=== PATIENT | male | born 1940 | race Caucasian/White ===

== ENCOUNTER 2018-03-18 17:30 | Inpatient (IN) | payer MEDICARE, OTHER ==
[~2018-03-18] VITALS: Ht 170.2 cm; Wt 67.6 kg
[~2018-03-18 17:30] MED LIST: DICYCLOMINE HCL10 MG PO; FISH OIL 1,0001 EAC8 PO; HUMALOG100 UNIT/1; HUMALOG100 UNIT/1 SUBQ; LACTULOSE20 GM/30 M PO; LOSARTAN POTAS100 MG PO; OMEPRAZOLE40 MG PO; PROPRANOLOL 1010 M1 PO; PROTONIX 20 MG20 MG PO; VITAMIN D31000 UNI2 PO; XIFAXAN550 M1 PO; XIFAXAN550 MG PO
[2018-03-18 17:34] VITALS: BP 148/61
[2018-03-18 18:02] LABS: HEMATOCRIT 31.7 % (42.0-52.0); HEMOGLOBIN 11.2 gm/dL (14.0-18.0); MCH 35.6 pg (26.0-34.0); MCHC 35.4 g/dL (28.0-37.0); MCV 100.6 fL (80.0-100.0); MPV 8.2 fl. (7.2-11.1); NUCLEATED RBCS 0 /100WBC; PLATELET COUNT* 70 thou/uL (150-400); RBC 3.15 mil/uL (4.50-6.00); RDW-CV 14.8 % (10.5-14.5); WBC 7.1 thou/uL (4.0-11.0)
[2018-03-18 18:25] LABS: HCO3 20.3 mmol/L (22.0-26.0); PCO2 34.5 mmHg (35.0-45.0); pH 7.388 (7.340-7.450)
[2018-03-18 18:26] LABS: PO2 < 23.5 mmHg (75.0-100.0)
[2018-03-18 18:34] LABS: ANION GAP 9 mmol/L (7-16); BUN 27 mg/dL (7-18); CALCIUM 8.7 mg/dL (8.5-10.1); CHLORIDE 106 mmol/L (98-107); CO2 22 mmol/L (21-32); CREATININE 1.6 mg/dL (0.6-1.3); GLUCOSE 136 mg/dL (70-99); POTASSIUM 4.6 mmol/L (3.5-5.1); SODIUM 137 mmol/L (136-145)
[2018-03-18 18:42] LABS: ALBUMIN 3.1 g/dL (3.4-5.0); ALKALINE PHOSPHATASE 88 U/L (46-116); AMMONIA 31 umol/L (11-32); MAGNESIUM 1.4 mg/dL (1.8-2.4); NT-PRO BRAIN NAT PEPTIDE 721 pg/mL (<300); SGOT 42 U/L (15-37); SGPT 25 U/L (30-65); TOTAL PROTEIN 6.8 g/dL (6.4-8.2); TROPONIN-I LEVEL <0.06 ng/mL (<0.06)
[2018-03-18 18:44] LABS: ABSOLUTE EOSINOPHILS 0.1 thou/uL (0.0-0.7); ABSOLUTE LYMPHOCYTES 0.5 thou/uL (0.8-5.3); ABSOLUTE MONOCYTES 0.4 thou/uL (0.0-1.2); ABSOLUTE NEUTROPHILS 6.1 thou/uL (1.6-8.1)
[2018-03-18 18:45] LABS: OVALOCYTES Occasional; PLATELET ESTIMATE DECREASED
[2018-03-18 18:46] LABS: ANISOCYTOSIS Occasional
[2018-03-18 18:55] LABS: URINE BILIRUBIN NEGATIVE (Negative); URINE BLOOD 1+ (Negative); URINE CLARITY CLEAR; URINE COLOR YELLOW; URINE GLUCOSE-RANDOM TRACE (Negative); URINE KETONES NEGATIVE (Negative); URINE LEUKOCYTES-REFLEX NEGATIVE (Negative); URINE NITRITE-REFLEX NEGATIVE (Negative); URINE PROTEIN 2+ (Negative); URINE SPECIFIC GRAVITY >= 1.030 (1.005-1.030)
[2018-03-18 19:43] LABS: INFLUENZA A ANTIGEN None Detected (None Detect); INFLUENZA B ANTIGEN None Detected (None Detect)
[2018-03-18 19:47] LABS: AMORPHOUS URATES Moderate /LPF (None Seen); MUCUS None Seen strn/LPF (None Seen); SQUAMOUS 0-3 Few /LPF (0-3); URINE WBC-REFLEX 0-5 Rare /HPF (0-5)
[2018-03-18 19:48] LABS: BACTERIA-REFLEX 1-9 Few /HPF (None Seen); CASTS None Seen /LPF (None Seen); URINE RBC 0-2 Rare /HPF (0-2)
[2018-03-18 20:25] VITALS: BP 148/56
[2018-03-18 22:00] VITALS: BP 138/56
[2018-03-19] VITALS (14 sets, daily range): BP systolic 88–173; BP diastolic 30–88
--- NOTE | 2018-03-19 05:14 | NUR ---
PT ARRIVED ON UNIT AT 2014 PT ASSISTED TO BED FROM STRETCHER PT LETHARGIC AND NON RESPONSIVE PTS VSS .PT RUNNING NSR ON THE MONITOR. PT BECAME HYPOTENSIVE AT 0000 NOTIFIED [address] YUEN CALLED BACK AND NOTIFIED ME THAT HE WOULD BE ORDERING A CENTRAL LINE AND LEVO. NOTIFIED OPTIMIZATION CONSULTANT WHO CONTACTED RETORT PRE COOKER TO COME PLACE CENTRAL LINE. WIFED CALLED WITH UPDATE AND GAVE VERBAL CONSENT TO TWO NURSES FOR LINE PLACEMENT PT TOLERATED WELL LEVO GTT STRATED. STOPPED GTT AT 0500 FOR BP 161/82. PT BECOMING MORE ALERT ANSWERING QUESTIONS CONTINUES WITH BILATERAL SOFT WRIST RESTRAINTS TURNED AND POSITIONED Q2H. WILL CONTINUE PLAN OF CARE.
[2018-03-19 08:20] LABS: BE -9.8 mmol/L (-2 to +3); PCO2 24.5 mmHg (35.0-45.0); pH 7.374 (7.340-7.450)
[2018-03-19 08:22] LABS: PO2 133.5 mmHg (75.0-100.0)
--- NOTE | 2018-03-19 10:05 | EKG ---
[place] [address] ELECTROCARDIOGRAM REPORT Name: LUIS A CARRERA Lois Room: [address] ADM IN M.R.#: [id number] Admission: 03/18/18 Attend Phys: Jay Wood MD Discharge: Date of : 40 Report #: [id number] THIS REPORT FOR: //name// [facility] ED Test Date: 2018-03-18 Test Time: 17:35:55 Pat Name: LUIS A CARRERA Department: Room: [facility] Gender: M Social Media Senior Associate: Johanne LOZANO : 1940 Requested By: Nicole Steele Order Number: [id number] MD: Thong James Measurements Intervals [place] Rate: 92 P: 25 NE: 191 QRS: -10 QRSD: 95 T: 63 QT: 347 QTc: 430 Interpretive Statements Sinus rhythm Minimal ST depression, anterolateral leads Compared to ECG 02/23/2016 07:38:33 artifact no longer seen Electronically Signed On 03-19-2018 10:04:56 CDT by Thong James [email or web address] <ELECTRONICALLY SIGNED> By: Thong James MD, FACC 03/19/18 1004 1735 1735 Thong James MD, FAC /EPI
--- NOTE | 2018-03-19 11:10 | NUR ---
SPOKE WITH PT.AND AT BEDSIDE. PT.CONTRIBUTED TO A FEW QUESTIONS OF THE CONVERSATION BUT MAINLY ANSWERED THE QUESTIONS. IS WITH PT. ALL THE TIME AT HOME OR TAKES HIM WITH HER. SHE SAID HE IS OK FOR SHORT PERIODS OF TIME ALONE BUT NOT ALL DAY. THEIR DAUGHTER LIVES CLOSE AND IS SUPPORTIVE. SHE IS A NURSE. PT.USES A WALKER TO AMBULATE. HE CAN BATHE HIMSELF. HE NEEDS ASSISTANCE DRESSING. SOMETIMES HE TENDS TO PUT HIS CLOTHES ON BACKWARDS. APPETITE IS NORMALLY GOOD. SHE SAID PT.DOES NOT DRINK BUT HAS CIRRHOSIS OF THE LIVER. CM WILL FOLLOW FOR DISCHARGE PLANNING.
[2018-03-19 14:26] LABS: CALCIUM 8.2 mg/dL (8.5-10.1); CREATININE 1.8 mg/dL (0.6-1.3); POTASSIUM 4.3 mmol/L (3.5-5.1)
--- NOTE | 2018-03-19 18:12 | NUR ---
ASSUME CARE OF PT. PT IN MRI. MEDS GIVEN FOR ANXIETY. PT ATTEMPTING TO PULL AT LINES BUT EASILY REDIRECTED
[2018-03-19 18:37] LABS: CALCIUM 8.4 mg/dL (8.5-10.1); CREATININE 1.9 mg/dL (0.6-1.3); POTASSIUM 4.6 mmol/L (3.5-5.1)
[2018-03-20] VITALS (17 sets, daily range): BP systolic 108–185; BP diastolic 44–102
--- NOTE | 2018-03-20 02:52 | NUR ---
ASSUMED CARE OF PATIENT AT 1900. BP SLIGHTLY ELEVATED, BUT PATIENT HIGHLY AGITATED, RESTLESS, CONFUSED, PULLING AT TLELE LEADS, O2 SENSOR. SITTER AT BEDSIDE. INCONTINENT OF URINE SEVERAL TIMES, ONE BOWEL MOVEMENT. MG REPLACED PER PROTOCOL. LABS TO BE DRAWN. FAMILY UPDATED TO POC. NOT WORKING TOWARDS POC GOALS.
[2018-03-20 06:25] LABS: ALBUMIN 3.2 g/dL (3.4-5.0); CALCIUM 8.5 mg/dL (8.5-10.1); CREATININE 1.8 mg/dL (0.6-1.3); MAGNESIUM 4.2 mg/dL (1.8-2.4); POTASSIUM 4.7 mmol/L (3.5-5.1)
--- NOTE | 2018-03-20 11:00 | NUR ---
INTERDISCIPLINARY ROUNDS: PT.HAS 1:1 SITTER. WHEN HE IS MORE ALERT, HE IS MORE IMPULSIVE. 2 BLOOD CXS HAVE COME BACK POSITIVE. NEPHROLOGY CONSULTED.
[2018-03-20 11:51] LABS: URINE BILIRUBIN NEGATIVE (Negative); URINE BLOOD 2+ (Negative); URINE CLARITY CLEAR; URINE COLOR YELLOW; URINE GLUCOSE-RANDOM NEGATIVE (Negative); URINE KETONES NEGATIVE (Negative); URINE LEUKOCYTES-REFLEX NEGATIVE (Negative); URINE NITRITE-REFLEX NEGATIVE (Negative); URINE PROTEIN 2+ (Negative); URINE SPECIFIC GRAVITY >= 1.030 (1.005-1.030); URINE UROBILINOGEN 0.2 E.U./dl (0.2-1.0)
--- NOTE | 2018-03-20 11:58 | CON ---
[address] [address] CONSULTATION Name: LUIS A CARRERA Lois Room: [address] IN M.R.#: [id number] Admission: 03/18/18 Attend Phys: Jay Wood MD Discharge: Date of : 40 Report #: [id number] THIS REPORT FOR: //name// CC: Thong Wood REQUESTING PHYSICIAN: Dr. Jay Wood. REASON FOR CONSULTATION: Alterations in mental status. DISCUSSION: This is a 77-year-old man who has a history of known cirrhosis, not thought to be related to alcohol usage. He began to have alterations in his mental status. He had a fairly sudden change. Noted he was extremely weak. Initially he had said he was going to go outside and walk. His had him sit down. He had alterations in his level of consciousness. Because of his history of diabetes, she did check his blood sugar. He became just minimally responsive. Did call 911 and was brought into the Emergency Department. He has no prior history of known pulmonary disease. He does have a history of cirrhosis, has had issues with portal hypertension and hepatic encephalopathy in the past. He was here several years ago with some similar issues. His is not aware of any fevers at home. She did not note him having issues with coughing. No nausea, vomiting or diarrhea at home that she is aware of. Not aware of any skin ulcerations. When he was seen in the Emergency Department, he was noted to be febrile. Definitely was confused. There was some initial concern he may have had some seizure-like activity. He had blood cultures done at the time of admission. He did spike a fever during the night up to 102.9. His blood cultures at this time (06/30) are positive for Gram-positive cocci. Identification is pending. PAST MEDICAL HISTORY: He has a history of cirrhosis, portal hypertension is noted. He has had EGDs in the past, which revealed a small hiatal hernia as well as esophageal varices. He did have an erosive reactive gastropathy. Prior history of peptic ulcer disease. He had prior tonsillectomy, cholecystectomy, hernia repair, cataracts, knee surgery. He is known in the past to have thrombocytopenia thought to be related to his cirrhosis (which was originally diagnosed in 2005). SOCIAL HISTORY: Nonsmoker. Does not drink alcohol nor has he in the past per family. 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 He is . FAMILY HISTORY: Unable to obtain from the [place] [address] CONSULTATION Name: LUIS A CARRERA Room: [address] IN M.R.#: [id number] Admission: 03/18/18 Attend Phys: Jay Wood MD Discharge: Date of : 40 Report #: [id number] REVIEW OF SYSTEMS: Unable to obtain from the patient. I was able to obtain some information from his and his daughter. PHYSICAL EXAMINATION: GENERAL: Seen in the ICU. Currently, he is off oxygen. He is awake. He is attempting to answer questions. Reliability of some of the answers is difficult to understand as he is quite difficult to understand. His mucous membranes are quite dry and it is difficult for him to talk. At times, he is slow to respond. does believe he has been generally fairly appropriate here recently. HEENT: Head is normocephalic. Sclerae nonicteric. Mucous membranes are quite dry. No thrush is seen. NECK: Negative for adenopathy. No JVD is noted. HEART: Regular rate. He is in the 70s. LUNGS: Sounds are fairly clear. Occasional rhonchus but does clear with a cough. Excursion appears equal. ABDOMEN: Soft. Does not appear tender to palpation. SKIN: Warm and dry. He has some muscle wasting noted. No definite edema is noted. No clubbing. Pulses are present, but diminished peripherally. SKIN: Warm and dry. LABORATORY AND X-RAY FINDINGS: I did have ultrasound of his abdomen done and does not appear to have any significant ascites noted. On chest x-ray, central line is in place. It is in the SVC. Has some mild cardiomegaly or some prominence of interstitial changes consistent with some mild pulmonary edema. A CT scan of his head done last night was negative for any acute findings. Does have some age-related atrophy. Arterial blood gases done yesterday evening, he had a pH of 7.39, pCO2 of 35, bicarbonate of 20. A pO2 reportedly was only 24. Followup gases done this morning on 2 liters, he had a pH of 7.37, a pCO2 of 25, pO2 of 134, bicarbonate 14, saturation 97%. It was on 2 liters and is now currently on 1 liter. His BUN is 30, creatinine of 1.8. Serum bicarbonate 18, magnesium 1.1. Total bilirubin is 3.1, albumin 2.4, alkaline phosphatase 59, ALT 26 with AST of 47. Lactic acid 2.2 on admission, now down to 1.8. INR is 1.2. White blood cell count 12,500, hemoglobin 9.3, hematocrit 26, MCV 102, platelets are 55,000. He does have a left shift. Influenza screen was negative. As noted, 2/2 blood cultures are positive for gram-positive cocci. IMPRESSION: 1. Possible early sepsis. Two out of two blood cultures are positive for gram-positive cocci. ID pending. Exact source not clear. However, he is immunocompromised given his cirrhosis as well as his diabetes mellitus. 2. Altered mental status, improved this morning. Most likely related to his acute infection as well as his underlying hepatic encephalopathy. 3. [place] [address] CONSULTATION Name: LUIS A CARRERA Room: [address] IN [facility].#: [id number] Admission: 03/18/18 Attend Phys: Jay Wood MD Discharge: Date of : 40 Report #: [id number] 4. Anemia. 5. Thrombocytopenia, most likely related to his liver disease. 6. Chronic kidney disease. RECOMMENDATIONS: 1. Continue vancomycin broad spectrum antibiotics pending ID. 2. Treat his encephalopathy. 3. Agree with Speech seeing him to evaluate. If he does not appear to be an aspiration risk, could resume p.o. intake. 4. Also, start IS. Given his acute illness, debility, he is at risk for development of pneumonia. <ELECTRONICALLY SIGNED> By: Katerine Casanova MD 03/20/18 1158 1148 1450Katerine Casanova MD /eliezer
[2018-03-20 12:06] LABS: CRYSTALS None Seen /LPF (None Seen)
[2018-03-20 12:07] LABS: BACTERIA-REFLEX None Seen /HPF (None Seen); URINE WBC-REFLEX 6-15 Few /HPF (0-5)
[2018-03-20 12:08] LABS: URINE RBC 3-10 Few /HPF (0-2)
[2018-03-20 12:09] LABS: HYALINE CASTS 0-3 Few /LPF (None Seen)
[2018-03-20 12:10] LABS: AMORPHOUS URATES Moderate /LPF (None Seen); MUCUS 0-3 Light strn/LPF (None Seen)
[2018-03-20 12:59] LABS: SQUAMOUS 0-3 Few /LPF (0-3)
[2018-03-20 13:09] LABS: CASTS None Seen /LPF (None Seen)
--- NOTE | 2018-03-20 18:08 | NUR ---
PT CENTRAL LINE DRESSING COMING OFF AGAIN, LEAKING AND PAINFUL WHEN FLUSHED, WILL NOT DRAW BLOOD BACK, APPEARS TO HAVE COME OUT A BIT, CHEST XRAY ORDERED PER PROTOCOL, INFUSIONS DC'D UNTIL RESULTS COME BACK
--- NOTE | 2018-03-20 18:10 | NUR ---
PT HAS BEEN DROWSY THROUGHOUT DAY, MOST OF THE MORNING AND AFTERNOON PT COOPERATIVE, RESTLESS AT TIMES, BUT FOLLOWS SIMPLE COMMANDS. THIS EVENING PT IS INCREASINGLY AGITATED, KICKING AND HITTING, TRYING TO GET OUT OF BED. PT HAS DAVIS INSERTED EARLIER THIS SHIFT, DRAINING WELL, PT HAD THREE BOWEL MOVEMENTS.
[2018-03-20 18:20] LABS: CALCIUM 8.6 mg/dL (8.5-10.1); POTASSIUM 4.6 mmol/L (3.5-5.1)
[2018-03-20 18:54] LABS: BE -8.1 mmol/L (-2 to +3); HCO3 15.3 mmol/L (22.0-26.0); PCO2 VENOUS 26.8 mmHg (41.0-51.0); PO2 VENOUS 52.3 mmHg (35.0-45.0)
[2018-03-21 05:05] LABS: ABSOLUTE EOSINOPHILS 0.2 thou/uL (0.0-0.7); ABSOLUTE MONOCYTES 0.6 thou/uL (0.0-1.2); ABSOLUTE NEUTROPHILS 4.7 thou/uL (1.6-8.1); BASOPHILS 0.5 %; EOSINOPHILS 2.5 %; HEMATOCRIT 26.3 % (42.0-52.0); HEMOGLOBIN 8.9 gm/dL (14.0-18.0); LYMPHOCYTES 15.9 %; MCH 35.2 pg (26.0-34.0); MCHC 33.8 g/dL (28.0-37.0); MCV 104.2 fL (80.0-100.0); MONOCYTES 9.9 %; NUCLEATED RBCS 0 /100WBC; PLATELET COUNT* 55 thou/uL (150-400); POLYS 71.2 %; RBC 2.53 mil/uL (4.50-6.00); RDW-CV 15.1 % (10.5-14.5); WBC 6.5 thou/uL (4.0-11.0)
--- NOTE | 2018-03-21 05:14 | NUR ---
UPON ARRIVAL PT HAS NO IV ACCESS D/T PULLING OUT CENTRAL LINE AND PERIPHERAL IVS OUT. PT HAS CONSTANTLY PULLED ON DAVIS, ATTEMPTED TO CLIMB OUT OF BED. PT WAS UNCOOPERATIVE FIRST PART OF SHIFT. PT STATED HE WA HURTING. DR ARSHAD NOTIFIED OF PTS AGITATION AND C/O OF PAIN AT 2214 AND NEW ORDER RECIEVED. IV RESTARTED AT BEGINNING OF SHIFT AND PT DCD IT. 2 NEW IVS PLACED IN L FOREARM. TRAFFIC ANALYSIS TECHNICIAN INTACT WITH ALARMS SET. DAVIS INTACT AND PATENT DRAINING DARK RITA URINE TO BEDSIDE BAG. SITTER REMAINS AT BEDSIDE. VSS AND NO ACUTE CHANGES DURIGN SHIFT. WILL CONTINUE TO MONITOR
[2018-03-21 05:22] LABS: INR 1.3; PROTIME 13.6 Seconds (9.20-11.50)
[2018-03-21 05:31] LABS: ALBUMIN 3.5 g/dL (3.4-5.0); CALCIUM 8.3 mg/dL (8.5-10.1); POTASSIUM 4.5 mmol/L (3.5-5.1); TOTAL BILIRUBIN 2.4 mg/dL (<0.1-1.0); TOTAL PROTEIN 6.3 g/dL (6.4-8.2)
--- NOTE | 2018-03-21 11:00 | NUR ---
AT BEDSIDE AND HAD COPY OF DPOA AND ADVANCE DIRECTIVE. CM MADE COPY AND PUT ON CHART. GAVE HER COPY BACK. PT.HAD BEEN VERY RESTLESS DURING THE NIGHT. PULLED OUT DAVIS AND IVS. SLEEPING AT THIS TIME.
--- NOTE | 2018-03-21 12:36 | CON ---
[address] [address] CONSULTATION Name: LUIS A CARRERA Room: [address] IN M.R.#: [id number] Admission: 03/18/18 Attend Phys: Jay Wood MD Discharge: Date of : 40 Report #: [id number] THIS REPORT FOR: //name// CC: Thong Wood DATE OF SERVICE: 03/20/2018 ATTENDING PHYSICIAN: Dr. Gallardo. REASON FOR EVALUATION: Gram-positive septicemia. HISTORY OF PRESENT ILLNESS: Chart reviewed, the patient examined. This is a 77-year-old man with cirrhosis, felt to be a cryptogenic who was admitted through the Emergency Room with worsening encephalopathy, seizure-like activity. He does have a history of diabetes mellitus and cirrhosis complicated by esophageal varices. He was sufficiently ill that he was placed in Intensive Care Unit. Chest x-ray was otherwise unrevealing. Lactic acid was elevated at 2.2. Influenza antigen was negative. Urinalysis did show only mild pyuria. Blood cultures collected at the time of admission now are 2/2 positive with Gram-positive cocci. He is really unable to give any details of history. He does have some slurred speech as well. He was empirically started on broad spectrum antimicrobial therapy with ceftriaxone as well as vancomycin as well as Zosyn. ALLERGIES: None known. CURRENT MEDICATIONS: Include Zosyn, aspirin, octreotide, midodrine, lactulose, ceftriaxone and vancomycin. PAST MEDICAL HISTORY: As noted above, diabetes mellitus type 2, hypertension, cryptogenic cirrhosis, esophageal varices, previous tonsillectomy, cholecystectomy, cataracts. SOCIAL HISTORY: Nonsmoker, no ethanol. FAMILY HISTORY: Noncontributory. REVIEW OF SYSTEMS: Limited due to his encephalopathy. PHYSICAL EXAMINATION: GENERAL: He appears chronically ill, undernourished. He is restless. He is in moderate to marked distress. Does have a degree of jaundice. VITAL SIGNS: Temperature 98.7, pulse 82, respirations 21, blood pressure 134/71. SKIN: [place] [address] CONSULTATION Name: LUIS A CARRERA Room: [address] IN [facility]#: [id number] Admission: 03/18/18 Attend Phys: Jay Wood MD Discharge: Date of : 40 Report #: [id number] NECK: He is moving his neck freely. LUNGS: Few scattered coarse breath sounds. HEART: Regular, has a soft systolic murmur. ABDOMEN: Soft. There are no apparent peritoneal signs. GENITOURINARY: Deferred. RECTAL: Deferred. LABORATORY DATA: Urinalysis 6-15 white cells, no bacteria. ABGs, pH 7.388, pCO2 of 34.5, pO2 less than 23.5 on room air. Electrolytes: Sodium 142, potassium 4.7, chloride 111, bicarbonate is 14, BUN and creatinine 39 and 1.8, anion gap of 17, AST of 68, ALT of 32, total bilirubin of 2.0, albumin 3.2, total protein 6.0. MRI of the head, moderately prominent microvascular ischemia, diffuse volume loss, minimal mucosal thickening of the maxillary sinuses. ASSESSMENT: Gram-positive septicemia in a patient with underlying cirrhosis certainly fits the risk for encapsulated organisms, certainly streptococcus would be a consideration. Certainly he should be well covered for staphylococcus as well given the likelihood it may be fairly aggressive etiology such as Staphylococcus aureus. He remains critically ill at this time. We will have to monitor expectantly. He is certainly at risk for clinical deterioration in spite of aggressive efforts to support. <ELECTRONICALLY SIGNED> By: Jesse Saucedo MD 03/21/18 1236 1235 1733Josuzan Saucedo MD /nt
[2018-03-21 15:04] LABS: CALCIUM 8.1 mg/dL (8.5-10.1); POTASSIUM 4.1 mmol/L (3.5-5.1)
[2018-03-21 17:33] LABS: CSF CLARITY CLOTTED; CSF COLOR BLOODY; VOLUME 0.5 ml
[2018-03-21 17:48] LABS: CSF PROTEIN 547.3 mg/dl (15-45)
[2018-03-21 17:52] LABS: CSF GLUCOSE 100 mg/dl (40-70)
[2018-03-21 21:43] LABS: URINE BILIRUBIN NEGATIVE (Negative); URINE BLOOD 3+ (Negative); URINE COLOR YELLOW; URINE GLUCOSE-RANDOM NEGATIVE (Negative); URINE KETONES NEGATIVE (Negative); URINE LEUKOCYTES-REFLEX NEGATIVE (Negative); URINE NITRITE-REFLEX NEGATIVE (Negative); URINE PROTEIN 2+ (Negative); URINE SPECIFIC GRAVITY 1.025 (1.005-1.030); URINE UROBILINOGEN 0.2 E.U./dl (0.2-1.0)
[2018-03-21 21:44] LABS: URINE CLARITY SL HAZY
[2018-03-21 21:49] LABS: BACTERIA-REFLEX None Seen /HPF (None Seen); CASTS None Seen /LPF (None Seen); CRYSTALS None Seen /LPF (None Seen); SQUAMOUS NONE SEEN /LPF (0-3); URINE RBC >20 Many /HPF (0-2); URINE WBC-REFLEX 0-5 Rare /HPF (0-5)
[2018-03-21 22:23] LABS: CALCIUM 8.6 mg/dL (8.5-10.1); CREATININE 2.1 mg/dL (0.6-1.3); POTASSIUM 3.9 mmol/L (3.5-5.1)
[2018-03-22 05:21] LABS: ABSOLUTE EOSINOPHILS 0.3 thou/uL (0.0-0.7); ABSOLUTE LYMPHOCYTES 1.1 thou/uL (0.8-5.3); ABSOLUTE MONOCYTES 0.6 thou/uL (0.0-1.2); BASOPHILS 0.4 %; HEMATOCRIT 25.6 % (42.0-52.0); HEMOGLOBIN 8.9 gm/dL (14.0-18.0); LYMPHOCYTES 22.4 %; MCH 35.5 pg (26.0-34.0); MCHC 34.7 g/dL (28.0-37.0); MCV 102.2 fL (80.0-100.0); MONOCYTES 11.3 %; MPV 8.9 fl. (7.2-11.1); NUCLEATED RBCS 0 /100WBC; PLATELET COUNT* 58 thou/uL (150-400); POLYS 59.9 %; WBC 4.9 thou/uL (4.0-11.0)
[2018-03-22 05:33] LABS: INR 1.3; PROTIME 13.4 Seconds (9.20-11.50)
[2018-03-22 05:45] LABS: ALBUMIN 3.4 g/dL (3.4-5.0); CALCIUM 8.3 mg/dL (8.5-10.1); CREATININE 1.9 mg/dL (0.6-1.3); POTASSIUM 3.8 mmol/L (3.5-5.1); TOTAL BILIRUBIN 2.5 mg/dL (<0.1-1.0)
--- NOTE | 2018-03-22 07:18 | NUR ---
PT AAOX3 THIS AM, RESP REG AND UNLABORED SKIN W/D NO ACUTE DISTRESS NOTED. FECAL MANAGEMENT SYSTEM INTACT DRAINING BROWN SECRETIONS, FOLWY INTACT AND PATENT DRAINING DARK YELLOW URINE. TROUSSEAU CONSULTANT INTact wWITH ALARMS SET. SITTER REMAINS AT BEDSIDE. VSS AND NO ACUTE CHANGES DURING SHIFT WILL CONTINUE TO MONITOR
--- NOTE | 2018-03-22 14:39 | 2DMMODE ---
[place] [address] 2 D/M-MODE ECHOCARDIOGRAM Name: JOSE ANGELLUIS A DONOHUE Lois Room: [address] IN [facility]#: [id number] Admission: 03/18/18 Attend Phys: Jay Wood, Discharge: Date of : 40 Date of Service: 03/22/18 1439 Report #: [id number] THIS REPORT FOR: //name// APPROVED REPORT Study performed: 03/22/2018 10:45:39 EXAM: Comprehensive 2D, Doppler, and color-flow Echocardiogram Patient Location: In-Patient Room #: 006 Status: routine BSA: 1.78 HR: 65 bpm BP: 152/70 mmHg Rhythm: NSR Other Information Study Quality: GoodTechnically Difficult Technically limited study due to uncooperative patient, patient would not hold still. Indications hepatic encephalopathy, cirrhosis 2D Dimensions IVSd: 12.07 (7-11mm) LVOT Diam: 20.64 (18-24mm) LVDd: 48.57 mm PWd: 8.37 (7-11mm) Ascending Ao: 37.29 (22-36mm) LVDs: 26.48 (25-40mm) Aortic Root: 34.98 mm Aortic Valve AoV Peak Klever.: 1.52 m/s AO Peak Gr.: 9.29 mmHg LVOT Max P.42 mmHg AO Mean Gr.: 4.88 mmHg LVOT Mean P.00 mmHg LVOT Max V: 1.36 m/s AO V2 VTI: 36.74 cm LVOT Mean V: 0.77 m/s ELISABETH (VTI): 2.82 cm2 LVOT V1 VTI: 30.99 cm Mitral Valve E/A Ratio: 1.10 MV Decel. Time: 155.40 ms MV E Max Klever.: 1.26 m/s MV PHT: 45.06 ms MVA (PHT): 4.88 [place] [address] 2 D/M-MODE ECHOCARDIOGRAM Name: LUIS A CARRERA Room: [address] IN M.R.#: [id number] Admission: 03/18/18 Attend Phys: Jay Wood, Discharge: Date of : 40 Date of Service: 03/22/18 1439 Report #: [id number] TDI E/Lateral E': 10.50 E/Medial E': 11.45 Medial E' Klever.: 0.11 m/s Lateral E' Klever.: 0.12 m/s Pulmonary Valve PV Peak Klever.: 0.89 m/s PV Peak Gr.: 3.16 mmHg Tricuspid Valve RAP Estimate: 5.00 mmHg TR Peak Gr.: 41.51 mmHg RVSP: 46.00 mmHg PA Pressure: 46.00 mmHg Left Ventricle The left ventricle is normal size. There is normal LV segmental wall motion. Mild concentric left ventricular hypertrophy. Left ventricular systolic function is normal. The left ventricular ejection fraction is within the normal range. LVEF is 60%. The left ventricular diastolic function is normal. Right Ventricle The right ventricle is normal size. The right ventricular systolic function is normal. Atria Left atrium is moderately dilated. The right atrium size is normal. Aortic Valve aortic valve sclerosis. The aortic valve is not well visualized. No aortic regurgitation is present. There is no aortic valvular stenosis. Mitral Valve There is mitral annular calcification. Mild mitral regurgitation. No evidence of mitral valve stenosis. Tricuspid Valve The tricuspid valve is normal in structure. Mild tricuspid regurgitation. Moderate pulmonary hypertension. Pulmonic Valve The pulmonary valve is normal in structure. Mild [place] [address] 2 D/M-MODE ECHOCARDIOGRAM Name: LUIS A CARRERA Room: [address] IN ..#: [id number] Admission: 03/18/18 Attend Phys: Jay Wood, Discharge: Date of : 40 Date of Service: 03/22/18 1439 Report #: [id number] Great Vessels The aortic root is normal in size. IVC is normal in size and collapses >50% with inspiration. Pericardium There is no pericardial effusion. <Conclusion> LVEF is 60%. Mild concentric left ventricular hypertrophy. There is normal LV segmental wall motion. Left atrium is moderately dilated aortic valve sclerosis. There is no aortic valvular stenosis. No aortic regurgitation is present. <ELECTRONICALLY SIGNED> By: Ceferino Lyons MD, FACC 03/22/18 1439 1439 143 Ceferino Lyons MD, FACC /INF
--- NOTE | 2018-03-22 17:43 | NUR ---
PT CARE ASSUMED AFTER REPORT. ASSESSMENT COMPLETE. SR ON MONITOR. PT CONFUSED, VERY IMPULSIVE AND RESTLESS. PULLING AT LINES AND TUBES. SITTER AT BEDSIDE. NEW FECAL SYSTEM PLACED AFTER PREVIOUS ONE WOULD NOT ACCEPT MEDICATION. NEW SYSTEM WORKS WELL. DAVIS TO DD. PT DIET ADVANCED. TOLERATING WELL. NO S/S OF ASPIRATION. FALL PRECAUTIONS IN PLACE. FAMILY AT BEDSIDE. DENIES PAIN. PROGRESSING TOWARDS SOME GOALS.
[2018-03-22 19:20] VITALS: BP 168/78
[2018-03-23] VITALS: BP 145/54
[2018-03-23 02:32] LABS: HEMATOCRIT 24.5 % (42.0-52.0); HEMOGLOBIN 8.4 gm/dL (14.0-18.0); MCH 35.2 pg (26.0-34.0); MCHC 34.3 g/dL (28.0-37.0); MCV 102.6 fL (80.0-100.0); MPV 8.9 fl. (7.2-11.1); NUCLEATED RBCS 0 /100WBC; PLATELET COUNT* 58 thou/uL (150-400); RBC 2.39 mil/uL (4.50-6.00); RDW-CV 15.1 % (10.5-14.5); WBC 4.7 thou/uL (4.0-11.0)
[2018-03-23 02:48] LABS: ALBUMIN 3.2 g/dL (3.4-5.0); CALCIUM 8.1 mg/dL (8.5-10.1); CREATININE 1.8 mg/dL (0.6-1.3); DIRECT BILIRUBIN 0.8 mg/dL (<0.1-0.3); POTASSIUM 3.6 mmol/L (3.5-5.1); TOTAL BILIRUBIN 2.6 mg/dL (<0.1-1.0); TOTAL PROTEIN 5.7 g/dL (6.4-8.2)
[2018-03-23 02:54] LABS: ABSOLUTE EOSINOPHILS 0.1 thou/uL (0.0-0.7); ABSOLUTE LYMPHOCYTES 1.1 thou/uL (0.8-5.3); ABSOLUTE MONOCYTES 0.4 thou/uL (0.0-1.2); ABSOLUTE NEUTROPHILS 3.1 thou/uL (1.6-8.1); PLATELET ESTIMATE DECREASED
[2018-03-23 02:55] LABS: ANISOCYTOSIS 1+; OVALOCYTES 1+; POLYCHROMASIA 1+
[2018-03-23 04:00] VITALS: BP 154/47
--- NOTE | 2018-03-23 06:14 | NUR ---
PT WAS AAOX3 AT BEGINNING OF SHIFT. RESP REG AND UNLABORED SKIN W/D NO ACUTE DISTRESS NOTED. SECTIONAL BELT MOLD ASSEMBLER INTACT WITH ALARMS SET. SHIFT WENT ON PT BECAME PROGRESSIVELY CONFUSED.VSS AND N0 ACUTE CHAGES DURIGN SHIFT. FOELY INTACT AND PATENT DRIANING DARK RITA URINE TO BEDSIDE BAG. FECAL MANAGEMENT SYSTEM INTACT WITH LIQUID BROWN STOOL NOTED. SITTER REMAINS AT BEDSIDE. WILL CONITNUE TO MONITOR
--- NOTE | 2018-03-23 09:19 | CON ---
[address] [address] CONSULTATION Name: JOSE ANGELJAYDELUIS A E Room: [address] IN M.R.#: [id number] Admission: 03/18/18 Attend Phys: Jay Wood MD Discharge: Date of : 40 Report #: [id number] THIS REPORT FOR: //name// CC: Thong Wood DATE OF SERVICE: 03/21/2018 CONSULTING PHYSICIAN: Dr. Gallardo. REASON FOR NEPHROLOGY CONSULTATION: Metabolic acidosis and chronic kidney disease. REASON FOR ADMISSION: Altered mental status and seizure-like activity. HISTORY OF PRESENT ILLNESS: This is a 77-year-old male with past medical history of diabetes type 2, has history of diabetic retinopathy, chronic kidney disease, stage 3 with baseline creatinine around 1.6-1.8, history of cirrhosis of cryptogenic origin and history of esophageal varices who was brought in by his because of seizure-like activity and altered mental status and some expressive aphasia. The patient has been confused. He was found to have gram-positive cocci in his blood and he is getting treatment for that in form of vancomycin and he is also receiving Zosyn. Nephrology was consulted because the serum bicarbonate level had dropped to 14 yesterday. He has also been getting lactulose, which he did not get today because he has been having some more diarrhea and he is being ruled out for C. diff. His creatinine has been ranging 1.8-2 here in this hospitalization. He has not been taking anything p.o. He was started on a bicarbonate drip yesterday with which his bicarbonate is improved to 20. He does not take any NSAIDs at home, no history of any kidney stones, no urinary complaints that the knows of. He has a Marcum catheter in place and he is nonoliguric, 50 mL of urine output in the last 24 hours. He does not follow with Nephrology at the moment, but did follow up with us and once in 2008. He was also started on octreotide, midodrine and albumin when he came in. His blood pressures now have been lingering high whereas they were low when he came in. He also received morphine this morning. He has been out sleeping. He has also been very agitated when he does wake up. REVIEW OF SYSTEMS: I cannot obtain from the patient right now given his current mental status. ALLERGIES: No known drug allergies. HOME MEDICATIONS: Include rifaximin, cholecalciferol, omega 3 fish oil, dicyclomine, propranolol, lactulose, omeprazole, Lispro insulin. PAST MEDICAL AND SURGICAL HISTORY: Includes esophageal varices, [place] [address] CONSULTATION Name: JOSE ANGELJAYDELUIS A Room: [address] IN M.R.#: [id number] Admission: 03/18/18 Attend Phys: Jay Wood MD Discharge: Date of : 40 Report #: [id number], carpal tunnel surgery, tonsillectomy, gallbladder surgical removal, hiatal hernia surgery, cataract removal, hypertension, cryptogenic cirrhosis, gastric ulcer. He also has history of chronic kidney, stage 3 with a creatinine of 1.6-1.8 attributed to diabetic nephropathy. FAMILY HISTORY: No history of kidney disease in the family. SOCIAL HISTORY: He lives at home with his . Does not smoke or take alcohol or use recreational drugs. PHYSICAL EXAMINATION: VITAL SIGNS: Blood pressure is 173/78, temperature is 36.7, pulse is 60, respiratory rate is 15 and pulse ox is 96% on room air. GENERAL: He is currently out. He is unresponsive and sleeping very soundly. HEAD, EYES, EARS, NOSE AND THROAT: Mucous membranes are dry, but also, he is mouth breathing. NECK: There is no JVD. CHEST: Bilateral diminished breath sounds and poor respiratory effort. CARDIOVASCULAR: S1 and S2. No murmurs or rubs. ABDOMEN: Soft and nontender. Bowel sounds are diminished. EXTREMITIES: There is no lower extremity edema in his left lower extremity. The right lower extremity has 1+ edema. NEUROLOGIC: He is currently sleeping very soundly. PSYCHIATRIC: Cannot assess right now. LABORATORY DATA: His hemoglobin is 8.9, potassium is 4.5 with a platelet count of 55, creatinine was 2.0 and CO2 was 20 and other labs were reviewed. IMAGING: Renal ultrasound was reviewed and other imaging studies were reviewed. ASSESSMENT AND PLAN: 1. Mild acute kidney injury, likely due to intravascular volume depletion on top of chronic kidney disease, stage 3, baseline creatinine is 1.6-1.8 and creatinine has been running 1.8-2 in this admission. UA shows evidence of 2+ protein and 2+ blood with 3-10 rbc's per high power field, 6-15 wbc's per high power field. Renal ultrasound was within normal limits. No evidence of any obstruction. He likely has diabetic nephropathy. 2. History of cirrhosis with portal hypertension. 3. Altered mental status. 4. Sepsis bacteremic gram-positive cocci in blood, ID is following and he is on vancomycin and Zosyn. 5. Lactic acidosis and mostly anion gap metabolic acidosis, far much because of sepsis and lactulose because of the diarrhea, which was likely induced by lactulose, now it is improving on bicarbonate drip. 6. ____. 7. Type 2 [place] [address] CONSULTATION Name: JOSE ANGELJAYDELUIS A E Room: [address] IN M.R.#: [id number] Admission: 03/18/18 Attend Phys: Jay Wood MD Discharge: Date of : 40 Report #: [id number] 8. Thrombocytopenia, platelet count has dropped to 55,000 from 70,000. 9. Hypertension. Blood pressure is now running high, was running low before. PLAN: 1. He intravascularly looks volume depleted, I will continue with IV fluids, but change the bicarbonate drip to D5 water with 2 amps of bicarbonate at 100 mL an hour. 2. Can stop albumin, octreotide and midodrine for now, this is because he does not look like he has hepatorenal syndrome at the moment and also, his blood pressure is a little high. 3. His metabolic acidosis is improving with bicarbonate drip, tried to limit the use of lactulose if he is already having diarrhea. Thank you for this consultation. I discussed the plan with the patient's as well as the patient's nurse. We will continue to follow along with you. <ELECTRONICALLY SIGNED> By: Mckayla Bryant MD 03/23/18 0919 [id number] 1934Aavril Bryant MD /eliezer
--- NOTE | 2018-03-23 10:30 | NUR ---
SPOKE WITH PT., AND PT.S SISTER IN ROOM. PT/ GAVE PERMISSION FOR VISITOR TO STAY DURING CONVERSATION. DISCUSSED BLOOD INFECTION AND POTENTIAL FOR IVAB FOR SEVERAL WEEKS AND DEBILITY DUE TO BEING IN HOSPITAL. MAY NEED TO GO TO SNF PRIOR TO GOING HOME. PT.SEEMS MUCH BETTER. IS AWAKE,HAS GLASSES ON AND SOME CONVERSATION. GAVE PT.S A LIST OF SNFS TO LOOK AT AND THINK ABOUT. TOLD HER WE WOULD REVISIT ON MONDAY.
--- NOTE | 2018-03-23 17:35 | NUR ---
PT CARE ASSUMED AFTER REPORT. ASSESSMENT COMPLETE. SR ON MONITOR. REPORTS THIS IS HIS BASELINE MENTAL STATUS. STATES THAT HE ALSO BECOMES VERY CONFUSED AT NIGHT WHEN AT HOME. PT CONFUSED AND FORGRGETFUL AT TIMES. LESS IMPULSIVE TODAY. DAVIS TO DD. FECAL TUBE IN PLACE. IVF INFUSING. DENIES PAIN. SLOWLY PROGRESSING TOWARDS GOALS. TO BE NPO AT MIDNIGHT FOR EGD T[place] AM.
--- NOTE | 2018-03-23 19:14 | CON ---
[address] [address] CONSULTATION Name: JOSE ANGELJAYDELUIS A E Room: [address] IN M.R.#: [id number] Admission: 03/18/18 Attend Phys: Jay Wood MD Discharge: Date of : 40 Report #: [id number] THIS REPORT FOR: //name// CC: Thong Wood DATE OF SERVICE: 03/22/2018 HISTORY OF PRESENT ILLNESS: This is a 77-year-old male patient for whom a neurological consultation was requested to evaluate the patient for altered mental status. The patient was discussed with Dr. Gallardo, the referring physician, yesterday. Family provided some history. This patient is having memory issues for some time. He has liver failure for also long time. He has multiple abnormalities. He was severely confused yesterday. He is much improved according to the family. He was started on the protocol for the patient's hepatic failure. He does have diarrhea. As I understand, a spinal tap was attempted yesterday and it demonstrated mostly blood. He has severe multiple medical problems. REVIEW OF SYSTEMS: Indicate that this patient has liver failure. The patient has mental status changes, which is improved. He has chronic anemia. It looks like he has baseline pretty significant cognitive problems. He does not drive. He sometimes needs help with day to day activity but most of the time, able to do that by himself reasonably well. A 14-point review of system was carried out and this was the patient's relevant 14-point review of system. The patient does have a history of thrombocytopenia. He has a history of diabetes, chronic kidney disease, lactic acidosis, sepsis, cirrhosis and hepatic encephalopathy. This was his relevant 14-point review of system, the best it could be carried out. He denies any visual disturbances, chest pain, respiratory difficulty. Denies any back pain. He can move both lower extremities. Denies any new dermatological symptom. He does have low platelet. PAST MEDICAL HISTORY: Positive for liver problem. FAMILY HISTORY: Negative for any early age stroke. SOCIAL HISTORY: He has a pretty supportive family. I discussed the situation with the family in detail. PHYSICAL EXAMINATION: NEUROLOGICAL: Indicate he is alert. He does not know what month it is. He thinks it is July. He did not know the name of the president, so his memory is pretty impaired but his memory is impaired in the baseline also but he us conscious. His speech is better. His fund of knowledge is diminished. His cranial nerve examination appear to be unremarkable. He moves all 4 extremities. He apparently has a neuropathy, so [place] [address] CONSULTATION Name: LUIS A CARRERA Room: [address] IN M.R.#: [id number] Admission: 03/18/18 Attend Phys: Jay Wood MD Discharge: Date of : 40 Report #: [id number] the position sense. His reflexes are diminished in the lower extremities. Tone looks symmetrical, but he can move the lower extremity. CARDIORESPIRATORY: Cardiac and respiratory examinations appear noncontributory. HEENT: His vision and hearing looks adequate. NECK: He has no thyroid mass. EXTREMITIES: His pulses are difficult to feel. VITAL SIGNS: His blood pressure is 173/78. His temperature is 98.1. His pulse is 69. LABORATORY DATA: His labs indicate anemia with hemoglobin of 8.9. His MCV is high. His platelet count is low. His B12 is normal. RADIOLOGICAL DATA: He did have an MRI, which showed no acute changes. He did have an EEG and that was discussed with the family. IMPRESSION: 1. Altered mental status, was most likely secondary to encephalopathy, most important factor from hepatic encephalopathy but some contribution for other metabolic problems. 2. MRI shows possible occlusion of the left carotid. That can be worked up further but at this juncture, it is unlikely to make much difference, maybe it can be done as an outpatient if the family wants to be aggressive. 3. His platelet was low and he did have a traumatic spinal tap. I will suggest watching to make sure no weakness of the lower extremity develops. RECOMMENDATIONS: Nothing specific to add except continue the management as described above. If he becomes more cooperative, further workup can be done. I will sign off but will be available in case there is any question about this patient or he has some deterioration in his status. Thank you very much for this referral. <ELECTRONICALLY SIGNED> By: Jose Alarcon MD 03/23/18 1914 [id number] Alarcon MD /eliezer
--- NOTE | 2018-03-23 19:14 | EEG ---
[address] [address] EEG STUDY REPORT Name: LUIS A CARRERA Room: [address] IN M.R.#: [id number] Admission: 03/18/18 Attend Phys: Jay Wood MD Discharge: Date of : 40 Report #: [id number] THIS REPORT FOR: //name// CC: Tohng Wood DATE OF SERVICE: 03/22/2018 This patient is being evaluated for altered mental status. EEG was done by placing the electrode by standard 10-20 system of electrode placement. Both referential and sequential montages were used for recording. Background activity in this patient's EEG is about 7 Hz and 30 microvolt. There is a symmetrical activity. The patient went to sleep that is associated with bilateral slowing and vertex sharp waves. Photic stimulation is unremarkable. Throughout the record, no active epileptiform activity was noticed. IMPRESSION: This is an abnormal electroencephalogram, which would be consistent with a diagnosis of encephalopathy. However, the finding is nonspecific and can occur in multiple other etiologies like dementia, effect of psychotropic medication, etc. Clinical correlation is recommended. <ELECTRONICALLY SIGNED> By: Jose Alarcon MD 03/23/18 1914 [id number] Alarcon MD /nt
[2018-03-24 05:16] LABS: HEMATOCRIT 23.9 % (42.0-52.0); HEMOGLOBIN 8.3 gm/dL (14.0-18.0); MCH 35.7 pg (26.0-34.0); MCHC 34.8 g/dL (28.0-37.0); MCV 102.4 fL (80.0-100.0); MPV 8.5 fl. (7.2-11.1); RBC 2.33 mil/uL (4.50-6.00); WBC 5.6 thou/uL (4.0-11.0)
[2018-03-24 05:32] LABS: CALCIUM 8.4 mg/dL (8.5-10.1); CREATININE 1.7 mg/dL (0.6-1.3); PHOSPHORUS* 2.5 mg/dL (2.5-4.9); POTASSIUM 3.7 mmol/L (3.5-5.1)
--- NOTE | 2018-03-24 06:52 | NUR ---
PT PROGRESSING TOWARD GOALS. PT STILL VERY CONFUSED BUT APPEARS TO BE LESS IMPULSIVE. PT WILL FOLLOW DIRECTIONS. PT PULLED FLEX-O-SEAL OUT LAST NIGHT. DID NOT REPLACE IT. HAVING DIFFICULT TIME GETTING A BLOOD PRESSURE ON PT. PT MOVES TOO MUCH TO GET AN ACCURATE BP
--- NOTE | 2018-03-24 16:30 | NUR ---
TRANSFER NOTE - REC PT FROM ICU. AT BEDSIDE. AGREE WITH PREVIOUS NURSE ASSESSMENT. WILL CONTINUE TO MONITOR.
[2018-03-24 20:15] VITALS: BP 174/71
[2018-03-25] VITALS: BP 158/61
[2018-03-25 04:00] VITALS: BP 162/63
--- NOTE | 2018-03-25 04:38 | NUR ---
PATIENT HAS REMAINED ALERT AND ORIENTED X 1-2, BUT PLEASANT AND COOPERATIVE. HAS NOT BEEN IMPULSIVE. BED ALARM ON FOR SAFETY AND AT BEDSIDE. INC 2 LARGE LOOSE BM'S. SKIN INTACT. TURNED FOR COMFORT. IV ANTIBIOTICS PER ORDERS. SEEN BY INFECTIOUS DISEASE THIS AM. VITAL SIGNS STABLE. CONTINUE TO MONITOR.
[2018-03-25 05:17] LABS: ABSOLUTE EOSINOPHILS 0.3 thou/uL (0.0-0.7); ABSOLUTE LYMPHOCYTES 1.4 thou/uL (0.8-5.3); ABSOLUTE MONOCYTES 0.4 thou/uL (0.0-1.2); ABSOLUTE NEUTROPHILS 2.2 thou/uL (1.6-8.1); BASOPHILS 0.8 %; EOSINOPHILS 7.4 %; HEMATOCRIT 24.3 % (42.0-52.0); HEMOGLOBIN 8.4 gm/dL (14.0-18.0); LYMPHOCYTES 32.1 %; MCH 35.7 pg (26.0-34.0); MCHC 34.6 g/dL (28.0-37.0); MCV 103.1 fL (80.0-100.0); MONOCYTES 8.9 %; MPV 8.6 fl. (7.2-11.1); NUCLEATED RBCS 0 /100WBC; PLATELET COUNT* 64 thou/uL (150-400); POLYS 50.8 %; RBC 2.35 mil/uL (4.50-6.00); RDW-CV 15.1 % (10.5-14.5); WBC 4.4 thou/uL (4.0-11.0)
[2018-03-25 05:30] LABS: ALBUMIN 2.9 g/dL (3.4-5.0); CALCIUM 7.9 mg/dL (8.5-10.1); CREATININE 1.6 mg/dL (0.6-1.3); DIRECT BILIRUBIN 0.6 mg/dL (<0.1-0.3); POTASSIUM 3.7 mmol/L (3.5-5.1); TOTAL PROTEIN 5.5 g/dL (6.4-8.2)
[2018-03-25 07:47] VITALS: BP 159/60
--- NOTE | 2018-03-25 16:09 | NUR ---
SHIFT NOTE - FAMILY AT BEDSIDE FOR MOST OF THIS SHIFT. PT UP TO COMMODE WITH MAX 1-2. RYAN RICHARDS'ED (PER ORDERS). DENIES ABD PAIN,NAUSEA. WILL CONTINUE TO MONITOR.
[2018-03-25 16:53] VITALS: BP 149/68
[2018-03-25 20:15] VITALS: BP 135/87
[2018-03-26] VITALS (7 sets, daily range): BP systolic 115–169; BP diastolic 58–86
[2018-03-26 04:18] LABS: CALCIUM 8.2 mg/dL (8.5-10.1); CREATININE 1.7 mg/dL (0.6-1.3); POTASSIUM 3.8 mmol/L (3.5-5.1)
--- NOTE | 2018-03-26 08:03 | NUR ---
PT SLEPT WELL OVERNIGHT. UP WITH MAX ASSIST TO BSC TO VOID AND HAVE LOOSE BM. LFA SLX2, ABX GIVEN ORDERED. AO TO SELF AND SITUATION, CONFUSED BUT COOPERATIVE AT TIMES. AM LABS. HS ACCUCHECK 228. DNR. VOIDING PER URINAL ALSO. ON TELE MONITOR. AUDIBLE WHEEZE HEARD AT TIMES, ROOM AIR SAT 96%. PT TURNED AND REPOSITIONED Q2 HOURS HE WOULD ALLOW. CALL LITE IN EASY REACH, BED ALARM ON FOR SAFETY.
--- NOTE | 2018-03-26 15:52 | NUR ---
PET HOUSE SITTER SPOKE TO THE PATIENT AND SPOUSE TO DISCUSS DISCHARGE PLANNING NEEDS AND SKILLED AT D/C. PATIENT'S SPOUSE INFORMS THAT SHE WOULD LIKE A SKILLED [facility] IF NO [facility] AVAILABLE [facility]. D/C POLE SHAVER SPOKE TO [facility] TO INFORM OF THE SKILLED REFERRAL. [facility] INFORMS THAT THE FACIL[facility] HAS BED AVAILABILITY. D/C POLE SHAVER FAXED [facility] PATIENT'S FACESHEET, H&P, LABS, AND MED LIST. D/C POLE SHAVER TO FAX PATIENT'S PT/OT NOTES WHEN AVAILABLE. CM WILL REMAIN AVAILABLE TO ASSIST AND FOLLOW NEEDED.
--- NOTE | 2018-03-26 17:59 | NUR ---
PT SLOWLY PROGRESSING TOWARDS GOALS THIS SHIFT. ORIENTED TO PERSON AND PLACE. DENIES PAIN. VSS. AFEBRILE. TOELRATING PO INTAKE. PT IS A HEAVY 2 ASSIST TO CHAIR/BED. PT AND STATE THEY PLAN TO GO TO [facility]Y [facility] [place]. DENY FURTHER QUESTIONS/CONCERNS AT THIS TIME.
[2018-03-27 04:07] VITALS: BP 129/47
--- NOTE | 2018-03-27 05:44 | NUR ---
PT SLEPT WELL OVERNIGHT, AT BEDSIDE ONCOT. ROOM AIR. LFA SL, ABX GIVEN ORDERED. PT DENIES PAIN OR PROBLEMS. USING URINAL TO VOID OVERNIGHT. UP WITH 2 MAX ASSIST TO BSC AT START OF SHIFT TO VOID AND HAVE BM.HS ACCUCHECK 206. PT TURNED AND REPOSITIONED Q2 HOURS AND PRN PT WOULD ALLOW. ABLE TO USE CALL LITE AND MAKE NEEDS KNOWN. NO LABS DRAWN THIS MORNING. TELE SR. DNR.
[2018-03-27 08:07] VITALS: BP 150/53
--- NOTE | 2018-03-27 12:53 | NUR ---
CONSULTED TO PLACE PICC FOR PT NEEDING FIBERGLASS MODEL MAKER ATB. ORDER AND CONSENT NOTED. REVIEW WITH PT AND RISK AND BENEFIT. BOTH VOICED UNDER STANDING AND AGREED. RIGHT UPPER ARM ASSESSED WITH ULTRASOUND. RIGHT BASILIC IDENTIFIED AND MARKED. 4FR SINGLE LUMAN POWER PICC PLACED WITH OUT DIFFICULTY PER HOSPITAL POLICY INCLUDING MAX BARRIER PRECAUTIONS. LINE TRIMMED AT 44CM AND ADVANCED TO 0CM EXTERNAL LINE SECURED AND DRESSING APPLIED. SHERLOCK 3CG FOR TIP CONFIRMATION. LINE RELEASED FOR IMMEDIATE USE. PT TOLERATED WELL. DENIES QUESTIONS OR NEEDS PRIOR TO EXITING ROOM.
--- NOTE | 2018-03-27 14:04 | NUR ---
PT/OT NOTES AVAILABLE IN COMPUTER. FAXED THESE,ALONG WITH DISCHARGE ORDERS, AND PROGRESS NOTES TO [facility] [phone]. ALSO CALLED [facility] TO NOTIFY HER THEY WERE COMING. SHE SAID SHE WOULD GIVE TO [facility]/D.[facility].N TO REVIEW AND THEY WILL CALL TO LET CM KNOW IF THEY CAN ACCEPT PT.
--- NOTE | 2018-03-27 15:06 | NUR ---
[facility] CALLED AND SAID THEY COULD ACCEPT PT.TODAY TO A SKILLED BED. SHE DID NOT HAVE TRANSPORTATION HOWEVER. NOTIFIED PT.AND . WOULD LIKE TO TAKE HIM IN HER CAR TO [facility]. OT/PT.AND NURSING FELT PT.MORE APPROPRIATE FOR A WC VAN. AGREEABLE. [facility] WC VAN/[facility] WILL ARRANGE WC VAN FOR 4:30-5:00. CHART COPIED TO GO WITH PT. NURSING TO CALL REPORT. INFORMED AND PT.OF DISCHARGE TIME.
[2018-03-27] MEDS ORDERED: APAP650 RECTAL (15:10)
[2018-03-27] MEDS ORDERED: ACCUNEB SO1.25 MG/1 INH (15:11)
[2018-03-27] MEDS ORDERED: LOPRESSOR25 PO (15:13)
[2018-03-27] MEDS ORDERED: TYLENOL325 MG PO (15:14)
[2018-03-27] MEDS ORDERED: AMPICILLIN-SULB3 GM IV (15:17)
[2018-03-27 15:19] VITALS: BP 150/53
--- NOTE | 2018-03-27 17:16 | NUR ---
PATIENT A&OX4, FORGETFUL, CAN BECOME MORE FORGETFUL DURING EVENING HOURS. RA. RIGHT UPPER ARM PICC SINGLE LUMEN, DRESSING CHANGED TODAY. UP WITH MAX ASSISTX2, UNSTEADY GAIT. INCONTINENT OF BOWEL AND BLADDER, BM X6 TODAY, ON LACTULOSE. AT BEDSIDE. PATIENT DISCHARGED TO [facility], CALLED AND GAVE REPORT SPOKE WITH XOCHITL. NO OTHER CONCERNS AT THIS TIME. APPROPRIATE AND COOPORATIVE WITH CARE. PATIENT LEFT UNIT AT 1715, VIA W/C WITH TRANSPORTATION [facility] W/C VAN. ALL BELONGINGS TAKEN WITH PATIENT, NOTHING LEFT BEHIND. APPROPRIATE AND COOPORATIVE WITH CARE.
--- NOTE | 2018-04-02 12:22 | CON ---
[address] [address] CONSULTATION Name: LUIS A CARRERA Room: [address] IN M.R.#: [id number] Admission: 03/18/18 Attend Phys: Jay Wood MD Discharge: 03/27/18 Date of : 40 Report #: [id number] THIS REPORT FOR: //name// CC: Thong Saucedo MD DATE OF SERVICE: 03/19/2018 IMPRESSION: 1. Staph bacteremia of uncertain etiology -- no evidence for ascites on physical exam, so SBP or spontaneous bacterial peritonitis is not likely. 2. 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 3. Hepatic encephalopathy exacerbated by #1. 4. Chronic kidney disease. RECOMMENDATIONS: 1. Agree with the patient being seen and treated by Infectious Disease to find a source for his possible infection, though it does not appear to be related to his GI tract. 2. We will begin the patient on medication to help with his mild hepatic encephalopathy in titrated doses of the same. 3. We will hold off on any diuretics, so as not to decrease his overall liver synthetic function and MELD score. 4. We will continue to follow the patient while in the hospital. I have discussed the plans with the patient's family, specifically his and daughter and they are agreeable to the same. 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 He has undergone extensive testing including CT scans of abdomen and pelvis, all of which were nonrevealing. He was told that he has problems related to hepatic encephalopathy. While in the hospital, he has developed evidence for staph bacteremia of uncertain source and we were asked to see him for the same. The patient has some speech difficulty at this point in time and he is mildly encephalopathic, though he is able to answer all the questions. He denies any complaints referable to his upper or lower GI tract. He normally is followed by my partner, Dr. Quintanilla, and has undergone endoscopic studies of his upper and lower GI tract by him in the recent past. He has no history of major issues with fluid retention including studies [place] [address] CONSULTATION Name: LUIS A CARRERA Room: [address]#: [id number] Admission: 03/18/18 Attend Phys: Jay Wood MD Discharge: 03/27/18 Date of : 40 Report #: [id number] ALLERGIES: None. MEDICATIONS: Include vitamin D3, fish oil, dicyclomine, propranolol, lactulose, omeprazole, rifaximin and Humalog insulin. PAST MEDICAL HISTORY: Hypertension, diabetes, and hyperlipidemia. He has history of portal hypertension with thrombocytopenia. He has had previous cholecystectomy, hernia repair, tonsillectomy, carpal tunnel release and cataract surgery. SOCIAL HISTORY: The patient does not smoke nor does he drink. FAMILY HISTORY: Negative. PHYSICAL EXAMINATION: GENERAL: Pleasant 77-year-old gentleman who has got slowness of his thought patterns. CARDIOPULMONARY: Revealed a regular rate and rhythm. LUNGS: Clear. ABDOMEN: Soft. LABORATORY DATA: From the revealed a white count of 12.5, hemoglobin 9.3, platelet count 55,000, MCV is 101.9 and RDW is 14.8. His sodium is 138, potassium 4.6, chloride 110, bicarbonate is 18. His BUN is 38, creatinine 1.9 for GFR of only 35. His bilirubin is 3.1, alkaline phosphatase is 59, AST is 47, ALT 26, albumin is 2.4. His protime is 11.8 with an INR of 1.2. CT scan of the head was negative. Abdominal ultrasound performed on the revealed no evidence for any ascites in 4 quadrants. DISCUSSION: At the present time, the patient has definite problems with hepatic encephalopathy, exacerbated by his infection. We would treat his infection at this point in time and then treat his encephalopathy as we can. I have discussed his plans with the patient as well as his family. <ELECTRONICALLY SIGNED> By: Varun Alvarez DO 04/02/18 1222 [id number] Alvarez DO /nt
== END 2018-03-27 17:15 | DRG 871 ==
LOC: M.ERS 17:30 → M.ICU 18:48 → M.TBA-ER 18:48 → M.ICU 20:32 → M.3W 03-24 16:37
PROVIDERS: Family Medicine; Internal Medicine; Internal Medicine Gastroenterology; Personal Emergency Response Attendant; Specialist
DX: A41.01 Sepsis due to Methicillin susceptible Staphylococcus aureus (principal); K72.00 Acute and subacute hepatic failure without coma; K76.7 Hepatorenal syndrome; K76.6 Portal hypertension; I85.10 Secondary esophageal varices without bleeding; N17.9 Acute kidney failure, unspecified; E87.4 Mixed disorder of acid-base balance; D69.6 Thrombocytopenia, unspecified; I12.9 Hypertensive chronic kidney disease with stage 1 through stage 4 chronic kidney disease, or unspecified chronic kidney disease; D50.0 Iron deficiency anemia secondary to blood loss (chronic); K76.0 Fatty (change of) liver, not elsewhere classified; E11.319 Type 2 diabetes mellitus with unspecified diabetic retinopathy without macular edema; D63.8 Anemia in other chronic diseases classified elsewhere; K44.9 Diaphragmatic hernia without obstruction or gangrene; K31.89 Other diseases of stomach and duodenum; E11.22 Type 2 diabetes mellitus with diabetic chronic kidney disease; N18.3 Chronic kidney disease, stage 3 (moderate); K74.60 Unspecified cirrhosis of liver; Z90.49 Acquired absence of other specified parts of digestive tract; Z87.11 Personal history of peptic ulcer disease; Z98.42 Cataract extraction status, left eye; Z98.41 Cataract extraction status, right eye; Z79.4 Long term (current) use of insulin; Z79.899 Other long term (current) drug therapy; Z28.21 Immunization not carried out because of patient refusal